=== PATIENT | female | born 1995 | race Caucasian/White ===

== ENCOUNTER 2017-12-24 20:55 | Emergency (ER) | payer OTHER ==
[~2017-12-24] VITALS: Ht 167.6 cm; Wt 79.4 kg
[2017-12-24] MEDS ORDERED: ULTRAM 50MG TAB50 MG PO (22:44)
[2017-12-24 22:56] VITALS: BP 139/85
== END 2017-12-24 22:56 | disposition home or self-care (01) ==
LOC: M.ERS 20:55
DX: S00.83XA Contusion of other part of head, initial encounter (principal); V23.0XXA Motorcycle driver injured in collision with car, pick-up truck or van in nontraffic accident, initial encounter; Y93.55 Activity, bike riding; Y92.89 Other specified places as the place of occurrence of the external cause; Y99.8 Other external cause status